=== PATIENT | male | born 1945 | race Caucasian/White ===

== ENCOUNTER 2019-12-11 09:46 | Outpatient (CLI) | payer MEDICARE, OTHER, SELFPAY ==
--- NOTE | 2019-12-11 10:15 | USCV_ITS ---
Omi Hinkle Age: 74 Gender: M : 1945 Exam Date: 12/11/2019 10:21 Ordering Phys: Laura Ocasio MD ([email or web address]) Technologist: Kaylyn Mustafa Exam Location: [facility] – [place] Indication: CAROTID STENOSIS Risk Factors: Unknown Previous Vascular Surgery: None Right Brachial BP: / Left Brachial BP: / Right Left Velocity (cm/s) Spectral Plaque Velocity (cm/s) Spectral Plaque Syst/Diast Broadening Syst/Diast Broadening 114.40/15.80 Prox CCA 102.50/ 22.10 93.30/ 15.80 Mid CCA 110.30/ 19.80 65.80/ 13.70 Hetro Distal CCA 94.80 / 28.70 Hetro 89.90/ 18.00 Hetro Prox ICA 46.30 / 9.90 207.10/64.30 Mid ICA 67.30 / 24.30 191.00/44.20 Mod Distal ICA 82.70 / 28.70 122.30 ECA 113.60 3.15 ICA/CCA 0.87 Antegrade Vertebral Antegrade 45.30/ 12.00 cm/s 43.30/ 13.40 cm/s Tri Subclavian Tri 120.5 127.7 0 0 FINDINGS Comparison: 08-15-19. See measurements listed above. Moderate to heavy heterogeneous plaques at the right proximal to mid ICA Minimal to moderate scattered plaques of the left bifurcation and proximal carotid artery. Intimal thickening in the common carotid arteries bilaterally. Antegrade flow in the vertebral arteries bilaterally. Normal Doppler flow velocities in the external carotid arteries bilaterally CONCLUSIONS Moderate to heavy heterogeneous plaques at the right proximal to mid ICAwith velocity elevation consistent with 50-79% stenosis. Minimal to moderate scattered plaques of the left bifurcation and proximal carotid artery. Compared to the study from 08/25/2019, there may not be a significant change Dr Laura Ocasio MD [facility] (Electronically Signed) Final Date: 12 December 2019 12:57 S
== END 2019-12-11 09:47 | disposition home or self-care (01) ==
LOC: RAD 09:54
PROVIDERS: Family Provider Electrodiagnostic Medicine; PCP Electrodiagnostic Medicine; Visit Provider Internal Medicine Cardiovascular Disease
DX: I65.23 Occlusion and stenosis of bilateral carotid arteries (principal)
CPT/HCPCS: 93880

== ENCOUNTER → 2020-05-25 10:58 | Outpatient (BNVA) | payer MEDICARE, OTHER, SELFPAY | PROVIDERS: Family Provider Electrodiagnostic Medicine; PCP Electrodiagnostic Medicine; Visit Provider Internal Medicine Cardiovascular Disease | DX: R07.9 Chest pain, unspecified (principal); I65.23 Occlusion and stenosis of bilateral carotid arteries; I10 Essential (primary) hypertension; E78.5 Hyperlipidemia, unspecified; I49.3 Ventricular premature depolarization | CPT/HCPCS: 80061; 80076 ==

== ENCOUNTER 2020-06-17 09:21 | Outpatient (CLI) | payer MEDICARE, OTHER, SELFPAY ==
--- NOTE | 2020-06-17 09:30 | USCV_ITS ---
Omi Hinkle Age: 74 Gender: M : 1945 Exam Date: 06/17/2020 09:33 Ordering Phys: Laura Ocasio MD ([email or web address]) Technologist: Adrianne Marlow [place] [facility] [place]: STENOSIS Risk Factors: Previous Vascular Surgery: Right Brachial BP: / Left Brachial BP: / Right Left Velocity (cm/s) Spectral Plaque Velocity (cm/s) Spectral Plaque Syst/Diast Broadening Syst/Diast Broadening 79.40/ 16.50 Prox CCA 101.40/ 30.40 84.90/ 23.20 Mid CCA 80.40 / 17.10 54.00/ 12.10 Distal CCA 82.00 / 21.40 58.40/ 15.40 Prox ICA 43.20 / 12.00 131.20/24.90 Mid ICA 50.80 / 18.10 110.50/27.40 Distal ICA 64.30 / 24.00 110.30 ECA 113.60 1.55 ICA/CCA 0.80 Antegrade Vertebral Antegrade 33.10/ 6.50 cm/s 35.60/ 8.80 cm/s Tri Subclavian Tri 63.30 75.40 FINDINGS Moderate to heavy heterogeneous plaques at the right bifurcation and the internal carotid artery Minimal plaques of the left bifurcation and internal carotid artery Antegrade flow in the vertebral arteries bilaterally Normal Doppler flow velocities in the external carotid arteries bilaterally Intimal thickening in the common carotid arteries bilaterally CONCLUSIONS Moderate to heavy heterogeneous plaques at the right bifurcation and the internal carotid artery with velocity elevation consistent with 50-79% stenosis. Minimal plaques at the left bifurcation and internal carotid artery. Compared to the study from 12/11/2019, the stenosis on the right side appears to be less severe Dr Laura Ocasio MD [facility] (Electronically Signed) Final Date: 17 June 2020 17:58 S
== END 2020-06-17 09:22 | disposition home or self-care (01) ==
LOC: US 09:23
PROVIDERS: PCP Electrodiagnostic Medicine; Visit Provider Internal Medicine Cardiovascular Disease
DX: I65.23 Occlusion and stenosis of bilateral carotid arteries (principal)
CPT/HCPCS: 93880

== ENCOUNTER → 2020-08-30 08:04 | Outpatient (BNVA) | payer MEDICARE, OTHER, SELFPAY | PROVIDERS: PCP Electrodiagnostic Medicine; Visit Provider Urology | DX: Z12.5 Encounter for screening for malignant neoplasm of prostate (principal); N40.0 Benign prostatic hyperplasia without lower urinary tract symptoms; N52.1 Erectile dysfunction due to diseases classified elsewhere; N48.6 Induration penis plastica | CPT/HCPCS: G0103 ==

== ENCOUNTER 2021-10-21 09:52 | Outpatient (CLI) | payer MEDICARE, OTHER, SELFPAY ==
--- NOTE | 2021-10-21 10:15 | USCV_ITS ---
Manan Omi Age: 76 Gender: M : 1945 Exam Date: 10/21/2021 10:01 Ordering Phys: Laura Ocasio MD ([email or web address]) Technologist: CLARISA [place] [facility] [place]ication: EVAL FOR STENOSIS Risk Factors: Previous Vascular Surgery: Right Brachial BP: / Left Brachial BP: / Right Left Velocity (cm/s) Spectral Plaque Velocity (cm/s) Spectral Plaque Syst/Diast Broadening Syst/Diast Broadening 168.30/18.40 Prox CCA 122.30/ 22.30 83.45/ 16.25 Mid CCA 111.70/ 25.00 69.90/ 16.30 Distal CCA 96.40 / 23.50 70.90/ 14.50 Prox ICA 55.00 / 17.10 177.10/48.20 Mid ICA 60.40 / 20.90 148.80/44.50 Distal ICA 71.90 / 22.70 115.40 ECA 104.50 1.05 ICA/CCA 0.59 Antegrade Vertebral Antegrade 44.40/ 15.40 cm/s 58.30/ 14.80 cm/s Tri Subclavian Tri 102.5 65.30 0 FINDINGS Moderate to heavy heterogeneous plaques at the right bifurcation and internal carotid artery Minimal plaquesatthe left bifurcation. Antegrade flow in the vertebral arteries bilaterally Normal Doppler flow velocity in the subclavian arteries bilaterally CONCLUSIONS Moderate to heavy heterogeneous plaques at the right bifurcation and internal carotid artery with flow characteristic, suggestive of 50 to 69% stenosis. Minimal plaques at the left bifurcation, suggesting less than 50% stenosis. No significant stenosis in the subclavian or vertebral arteries, based on the above findings. Dr Laura Ocasio MD [facility] (Electronically Signed) Final Date: 21 October 2021 15:26 S
== END 2021-10-21 09:53 | disposition home or self-care (01) ==
LOC: RAD 09:54
PROVIDERS: PCP Electrodiagnostic Medicine; Visit Provider Internal Medicine Cardiovascular Disease
DX: I65.23 Occlusion and stenosis of bilateral carotid arteries (principal); I77.9 Disorder of arteries and arterioles, unspecified
CPT/HCPCS: 93880

== ENCOUNTER → 2022-02-23 10:00 | Outpatient (BNVA) | payer MEDICARE, OTHER, SELFPAY | PROVIDERS: PCP Electrodiagnostic Medicine; Visit Provider Internal Medicine Cardiovascular Disease | DX: I49.8 Other specified cardiac arrhythmias (principal); I10 Essential (primary) hypertension; I65.23 Occlusion and stenosis of bilateral carotid arteries; E78.2 Mixed hyperlipidemia; Z87.891 Personal history of nicotine dependence | CPT/HCPCS: 80061; 99214 ==

== ENCOUNTER 2022-04-25 09:28 | Outpatient (CLI) | payer MEDICARE, OTHER, SELFPAY ==
[2022-04-25 10:36] LABS: Chol HDL Ratio 2.98 mg/dL (1.0-5.00); Cholesterol 122 mg/dL (0-200); HDL Cholesterol 41 mg/dL (60-100); LDL Cholesterol Calculated 54 mg/dL (50-129); LDL HDL Ratio 1.32 RATIO (0.00-3.22); Triglycerides 135 mg/dL (0-150)
== END 2022-04-25 09:29 | disposition home or self-care (01) ==
LOC: LAB 09:32
PROVIDERS: PCP Electrodiagnostic Medicine; Visit Provider Internal Medicine Cardiovascular Disease
DX: E78.2 Mixed hyperlipidemia (principal)
CPT/HCPCS: 36415; 80061

== ENCOUNTER → 2022-08-17 11:42 | Outpatient (BNVA) | payer MEDICARE, OTHER, SELFPAY | PROVIDERS: PCP Electrodiagnostic Medicine; Visit Provider Internal Medicine Cardiovascular Disease | DX: I49.9 Cardiac arrhythmia, unspecified (principal); I10 Essential (primary) hypertension; I65.23 Occlusion and stenosis of bilateral carotid arteries; E78.2 Mixed hyperlipidemia; Z87.891 Personal history of nicotine dependence | CPT/HCPCS: 99214 ==

== ENCOUNTER 2022-08-25 09:29 | Outpatient (CLI) | payer MEDICARE, OTHER, SELFPAY ==
[2022-08-25 10:32] LABS: Chol HDL Ratio 4.56 mg/dL (1.0-5.00); Cholesterol 146 mg/dL (0-200); HDL Cholesterol 32 mg/dL (60-100); LDL Cholesterol Calculated 77 mg/dL (50-129); LDL HDL Ratio 2.41 RATIO (0.00-3.22); Triglycerides 186 mg/dL (0-150)
[2022-08-25 10:41] LABS: PSA Screen - Urology 1.98 ng/mL (0-4)
== END 2022-08-25 09:30 | disposition home or self-care (01) ==
LOC: LAB 09:34
PROVIDERS: Internal Medicine Cardiovascular Disease; PCP Electrodiagnostic Medicine; Visit Provider Urology
DX: E78.5 Hyperlipidemia, unspecified (principal); I65.23 Occlusion and stenosis of bilateral carotid arteries; Z12.5 Encounter for screening for malignant neoplasm of prostate
CPT/HCPCS: 36415; 80061; G0103

== ENCOUNTER → 2022-08-29 10:36 | Outpatient (BNVA) | payer MEDICARE, OTHER, SELFPAY | PROVIDERS: PCP Electrodiagnostic Medicine; Visit Provider Urology | DX: Z12.5 Encounter for screening for malignant neoplasm of prostate (principal); N48.6 Induration penis plastica; N52.1 Erectile dysfunction due to diseases classified elsewhere | CPT/HCPCS: 51798; 81003; 99213 ==

== ENCOUNTER → 2022-11-13 08:05 | Outpatient (BNVA) | payer SELFPAY | PROVIDERS: PCP Electrodiagnostic Medicine; Visit Provider Electrodiagnostic Medicine | DX: Z13.6 Encounter for screening for cardiovascular disorders (principal) | CPT/HCPCS: 80061; 82947; 83036 ==

== ENCOUNTER 2022-11-24 11:03 | Outpatient (CLI) | payer MEDICARE, SELFPAY ==
--- NOTE | 2022-11-24 11:15 | USCV_ITS ---
Omi Hinkle Age: 77 Gender: M : 1945 Exam Date: 11/24/2022 11:30 Ordering Phys: Laura Ocasio MD ([email or web address]) Technologist: CT [place] [facility] [place]: Risk Factors: Previous Vascular Surgery: Right Brachial BP: / Left Brachial BP: / Right Left Velocity (cm/s) Spectral Plaque Velocity (cm/s) Spectral Plaque Syst/Diast Broadening Syst/Diast Broadening 82.70/ 15.40 Prox CCA 110.30/ 16.50 71.50/ 14.80 Mid CCA 81.80 / 16.80 62.80/ 15.00 Distal CCA 79.70 / 16.90 162.70/42.50 Prox ICA 59.80 / 15.70 149.50/33.70 Mid ICA 54.30 / 13.60 113.90/18.20 Distal ICA 70.40 / 22.80 81.30 ECA 93.80 1.97 ICA/CCA 0.64 Antegrade Vertebral Antegrade 48.20/ 13.20 cm/s 36.50/ 14.80 cm/s Bi Subclavian Tri 112.5 138.0 0 0 FINDINGS Moderate heterogenous plaques at the bifurcation on the right side Mild to moderate heterogenous plaques at the left bifurcation Minimal thickening in the common carotid arteries bilaterally. Antegrade flow in the vertebral arteries bilaterally Normal Doppler flow velocities in the external carotid and subclavian arteries bilaterally CONCLUSIONS Moderate heterogenous plaques at the bifurcation on the right side with velocity elevation suggesting 50 to 69% stenosis. Mild to moderate heterogenous plaques at the left bifurcation with a Doppler features suggesting less than 50% stenosis. No significant stenosis in the other extracranial vessels ,mentioned above, based on the current findings Compared to the study from 10/21/2021, there may not be a significant change Dr Laura Ocasio MD [facility] (Electronically Signed) Final Date: 25 November 2022 18:59 S
== END 2022-11-24 11:04 | disposition home or self-care (01) ==
PROVIDERS: PCP Electrodiagnostic Medicine; Visit Provider Internal Medicine Cardiovascular Disease
DX: I65.23 Occlusion and stenosis of bilateral carotid arteries (principal); I77.9 Disorder of arteries and arterioles, unspecified
CPT/HCPCS: 93880

== ENCOUNTER 2022-12-06 12:31 | Emergency (ER) | payer MEDICARE, SELFPAY ==
[2022-12-06 12:52] VITALS: BP 162/84; PULSE 76; RESP 17; TEMP 36.4; O2SAT 98; BMI 24.3
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
--- NOTE | 2022-12-06 14:02 | XRR_ITS ---
PROCEDURE INFORMATION: Exam: XR Left Tibia and Fibula Exam date and time: 12/06/2022 2:07 PM Age: 77 years old Clinical indication: Injury or trauma; Puncture; Lower leg; Left; Foreign body involvement not specified; Injury details: Dog bite, mid tib/fib, lateral side TECHNIQUE: Imaging protocol: Radiologic exam of the left tibia and fibula. Views: 2 views. COMPARISON: No relevant prior studies available. FINDINGS: Bones/joints: No fracture or acute osseous abnormality is seen. Mild enthesophyte formation about the anterior tibial tuberosity and patella at the knee. Knee and ankle joints appear maintained. Soft tissues: No radiopaque soft tissue foreign body is seen. XR/XR tibia fibula LT 2V [id number] IMPRESSION: 1. No fracture or acute osseous abnormality. 2. No soft tissue radiopaque foreign body is seen.
[2022-12-06] MEDS: tetanus-dipt-pertussis 0.5 mL SDV IM (14:27)
[2022-12-06] MEDS: rabies vaccine 2.5 unit SDV IM (14:38)
[2022-12-06] MEDS: HYDROcodone-acetaminophen 5-325 mg Tablet 1 TAB PO (14:53)
== END 2022-12-06 14:53 | disposition home or self-care (01) ==
PROVIDERS: Emergency Provider Physician Assistant; PCP Electrodiagnostic Medicine
DX: S81.852A Open bite, left lower leg, initial encounter (principal); W54.0XXA Bitten by dog, initial encounter; Z79.82 Long term (current) use of aspirin; Z87.891 Personal history of nicotine dependence; E78.5 Hyperlipidemia, unspecified; I10 Essential (primary) hypertension; Z23 Encounter for immunization; Z20.3 Contact with and (suspected) exposure to rabies; Z29.14 Encounter for prophylactic rabies immune globulin
CPT/HCPCS: 73590; 90375; 90471; 90675; 90715; 96372; 99284

== ENCOUNTER → 2023-02-28 09:54 | Outpatient (BNVA) | payer MEDICARE, OTHER, SELFPAY | PROVIDERS: PCP Electrodiagnostic Medicine; Visit Provider Internal Medicine Cardiovascular Disease | DX: E78.2 Mixed hyperlipidemia (principal); I65.23 Occlusion and stenosis of bilateral carotid arteries; I10 Essential (primary) hypertension; I49.3 Ventricular premature depolarization; Z87.891 Personal history of nicotine dependence | CPT/HCPCS: 36415; 80061; 80076; 99214 ==

== ENCOUNTER → 2023-09-12 09:48 | Outpatient (BNVA) | payer MEDICARE, SELFPAY | PROVIDERS: PCP Electrodiagnostic Medicine; Visit Provider Internal Medicine Cardiovascular Disease | DX: I49.8 Other specified cardiac arrhythmias (principal); E78.2 Mixed hyperlipidemia; I65.23 Occlusion and stenosis of bilateral carotid arteries; I10 Essential (primary) hypertension; Z87.891 Personal history of nicotine dependence | CPT/HCPCS: 99214 ==

== ENCOUNTER 2023-09-18 09:37 | Outpatient (CLI) | payer MEDICARE, SELFPAY ==
[2023-09-18 10:34] LABS: Alanine Aminotransferase 16 U/L (0-41); Albumin Level 4.3 g/dL (3.5-5.2); Alkaline Phosphatase 85 U/L (40-130); Aspartate Amino Transferase 17 U/L (0-40); Cholesterol 117 mg/dL (0-200); Globulin 2.9 g/dL (1.3-4.6); HDL Cholesterol 39 mg/dL (60-100); LDL Cholesterol Calculated 53 mg/dL (50-129); LDL HDL Ratio 1.36 RATIO (0.00-3.22); Total Bilirubin 1.4 mg/dL (0.15-1.2); Total Protein 7.2 g/dL (6.6-8.7); Triglycerides 124 mg/dL (0-150)
== END 2023-09-18 09:38 | disposition home or self-care (01) ==
LOC: LAB 09:39
PROVIDERS: PCP Electrodiagnostic Medicine; Visit Provider Internal Medicine Cardiovascular Disease
DX: E78.5 Hyperlipidemia, unspecified (principal); Z79.899 Other long term (current) drug therapy
CPT/HCPCS: 36415; 80061; 80076

== ENCOUNTER → 2024-03-12 10:18 | Outpatient (BNVA) | payer MEDICARE, SELFPAY | PROVIDERS: PCP Electrodiagnostic Medicine; Visit Provider Internal Medicine Cardiovascular Disease | DX: I49.8 Other specified cardiac arrhythmias (principal); I65.23 Occlusion and stenosis of bilateral carotid arteries; E78.2 Mixed hyperlipidemia; I10 Essential (primary) hypertension; Z87.891 Personal history of nicotine dependence; Z79.82 Long term (current) use of aspirin | CPT/HCPCS: 99214 ==

== ENCOUNTER 2024-03-19 05:56 | Outpatient (CLI) | payer MEDICARE, SELFPAY ==
--- NOTE | 2024-03-19 06:15 | USCV_ITS ---
Omi Hinkle Age: 78 Gender: M : 1945 Exam Date: 03/19/2024 06:05 Ordering Phys: Laura Ocasio MD ([email or web address]) Technologist: Exam Location: [facility] – [place] Indication: rt cca stenosis Risk Factors: Previous Vascular Surgery: Right Brachial BP: / Left Brachial BP: / Right Left Velocity (cm/s) Spectral Plaque Velocity (cm/s) Spectral Plaque Syst/Diast Broadening Syst/Diast Broadening 76.30/ 14.10 Prox CCA 63.30 / 15.30 80.20/ 18.00 Mid CCA 52.20 / 16.80 51.70/ 11.50 Distal CCA 54.20 / 14.10 47.80/ 12.80 Prox ICA 39.90 / 8.50 125.00/27.00 Mid ICA 49.40 / 17.00 121.90/29.00 Distal ICA 55.10 / 16.10 98.30 ECA 68.00 2.40 ICA/CCA 1.00 Antegrade Vertebral Antegrade 34.60/ 8.60 cm/s 22.70/ 6.60 cm/s Tri Subclavian Tri 59.00 73.00 FINDINGS Mild to moderate plaque to the right bifurcation. Moderate to heavy heterogenous plaques of the mid and distal internal carotid artery on the right side. Intimal thickening and minimal plaques in the common carotid arteries but bilaterally. Mild to moderate plaques of the left bifurcation. Antegrade flow in the vertebral arteries bilaterally Normal Doppler flow velocities in the external carotid, subclavian and vertebral arteries bilaterally CONCLUSIONS Mild to moderate plaques at the bifurcations bilaterally, suggesting less than 50% stenosis. Moderate heterogenous plaques at the mid and distal right ICA. Intimal thickening and minimal plaque to the common carotid arteries bilaterally. No significant stenosis in the subclavian, vertebral and external carotid arteries bilaterally, based on the above findings Dr Laura Ocasio MD [facility] (Electronically Signed) Final Date: 25 March 2024 08:48 S
== END 2024-03-19 05:57 | disposition home or self-care (01) ==
PROVIDERS: PCP Electrodiagnostic Medicine; Visit Provider Internal Medicine Cardiovascular Disease
DX: I65.23 Occlusion and stenosis of bilateral carotid arteries (principal)
CPT/HCPCS: 93880

== ENCOUNTER → 2024-09-23 09:43 | Outpatient (BNVA) | payer MEDICARE, SELFPAY | PROVIDERS: PCP Electrodiagnostic Medicine; Visit Provider Internal Medicine Cardiovascular Disease | DX: E78.2 Mixed hyperlipidemia (principal); I65.23 Occlusion and stenosis of bilateral carotid arteries; I10 Essential (primary) hypertension; I49.8 Other specified cardiac arrhythmias; Z87.891 Personal history of nicotine dependence | CPT/HCPCS: 36415; 80061; 80076; 99214 ==

== ENCOUNTER → 2025-03-26 09:21 | Outpatient (BNVA) | payer MEDICARE, SELFPAY | PROVIDERS: PCP Electrodiagnostic Medicine; Visit Provider Nurse Practitioner Family | DX: I49.8 Other specified cardiac arrhythmias (principal); I10 Essential (primary) hypertension; I65.23 Occlusion and stenosis of bilateral carotid arteries; E78.2 Mixed hyperlipidemia; I49.3 Ventricular premature depolarization | CPT/HCPCS: 99214 ==